=== PATIENT | female | born 1960 | race Two or more races ===

== ENCOUNTER 2017-05-26 15:07 | Emergency (ER) | payer BC ==
[~2017-05-26] VITALS: Ht 162.6 cm; Wt 72.6 kg
--- NOTE | 2017-05-26 15:10 | NUR ---
BB : S/P WITNESSED SYNCOPY. RIGHT SIDE FACE INJURY, NAD NOTED, VSS, RESP EVEN AND UNLABORED, AAOX4, WAITING FOR MD JOHNSON.
[2017-05-26] MEDS ORDERED: IV NS 0.9% 1,000 ML BAG IV ONE (15:30)
[2017-05-26 15:50] LABS: BASOPHILS % (AUTO) 0.4 % (0.0-2.0); EOSINOPHILS # (AUTO) 0.1 /CMM (0.0-0.7); HEMATOCRIT 46 % (33-45); HEMOGLOBIN 15.8 g/dL (11.5-14.8); LYMPHOCYTES # (AUTO) 1.3 /CMM (0.8-4.8); MEAN CORPUSCULAR HEMOGLOBIN 31 PG (26.0-33.0); MEAN CORPUSCULAR HGB CONC 35 g/dl (31.0-36.0); MEAN CORPUSCULAR VOLUME 89 fL (82-100); MONOCYTES # (AUTO) 0.6 /CMM (0.1-1.30); NEUTROPHILS # (AUTO) 6.2 /CMM (1.8-8.9); NEUTROPHILS % (AUTO) 75.6 % (43.0-81.0); PLATELET COUNT (AUTO) 239 /CMM (150-450); RDW COEFFICIENT OF VARIATION 11.4 (11.5-15.0); RED BLOOD CELL COUNT(AUTO) 5.14 MIL/uL (4.0-5.2); WHITE BLOOD COUNT (AUTO) 8.3 K/uL (4.3-11.0)
[2017-05-26] MEDS ORDERED: LORAZEPAM 1 MG TABLET ONE (15:53)
--- NOTE | 2017-05-26 15:56 | NUR ---
PT TO [facility]SCAN
[2017-05-26 16:00] LABS: CALCIUM, SERUM 9.1 mg/dL (8.5-10.1); CARBON DIOXIDE 27 mmol/L (21-32); CHLORIDE 103 mmol/L (98-107); CREATININE 0.8 mg/dL (0.6-1.3); GLUCOSE 107 mg/dL (74-106); POTASSIUM 3.6 mmol/L (3.5-5.1); SODIUM SERUM 138 mmol/L (136-145); UREA NITROGEN, BLOOD 10 mg/dL (7-18)
[2017-05-26] MEDS ORDERED: LORAZEPAM 0.5 MG TABLET PO ONE (16:00)
[2017-05-26 16:09] LABS: TROPONIN I < 0.017 ng/mL (0.00-0.056)
[2017-05-26 17:15] VITALS: BP 127/75
--- NOTE | 2017-05-26 17:16 | NUR ---
Patient discharged to home in stable condition. Written and verbal after care instructions given. Patient verbalizes understanding of instruction. IV removed. Catheter intact and site benign. Pressure and 4x4 applied to site. No bleeding noted.
== END 2017-05-26 17:17 | disposition home or self-care (01) ==
LOC: ER 15:11
DX: R55 Syncope and collapse (principal); R42 Dizziness and giddiness; R51 Headache
CPT/HCPCS: 36415; 70450-TC; 71010-TC; 80048-TC; 83605-TC; 84484-TC; 85025-TC; A4606; J7030; Z7610